=== PATIENT | female | born 1965 | race African-American/Black ===

== ENCOUNTER 2017-01-20 13:23 | Day surgery (SDC) | payer MEDICARE, MEDICAID ==
[~2017-01-20 13:23] MED LIST: AL-MAG HYDROX-S30 ML PO; ALBUTEROL17 GM; AMBIEN5 MG PO; CEPHALEXIN; COUMADIN4 MG PO; DULCOLAX10 MG/SUPP RC; DULCOLAX5 MG PO; DULERA 100 MCG/13 GM IH; FLEXERIL10 MG PO; MILK OF MAGNES311 MG PO; MOTRIN IB200 MG; NO MEDICATIONS; NORCO 5/325 TAB1 TAB PO; NUCYNTA50 MG PO; ROBITUSSIN15 MG/5 M1 PO; SENOKOT-S TABLE1 TAB PO; TUMS500 M1 PO; TYLENOL325 MG PO; ULTRAM50 MG PO
[2017-01-20] MEDS ORDERED: CYCLOBENZAPRINE10 M1 PO (13:48)
[2017-01-20] MEDS ORDERED: OPANA PO (13:48)
== END 2017-01-20 15:15 ==
LOC: ENDOS 13:23 → SHSB 13:25 → ENDOS 14:15
PROC: 0DBK8ZX Excision of Ascending Colon, Via Natural or Artificial Opening Endoscopic, Diagnostic (ICD-10-PCS; principal; 2017-01-20)
PROC: 0DBN8ZX Excision of Sigmoid Colon, Via Natural or Artificial Opening Endoscopic, Diagnostic (ICD-10-PCS; principal; 2017-01-20)
DX: Z12.11 Encounter for screening for malignant neoplasm of colon (principal); D12.3 Benign neoplasm of transverse colon; K63.5 Polyp of colon; K64.1 Second degree hemorrhoids; K59.00 Constipation, unspecified; M19.90 Unspecified osteoarthritis, unspecified site; Z98.890 Other specified postprocedural states; Z90.710 Acquired absence of both cervix and uterus; Z79.899 Other long term (current) drug therapy; Z88.8 Allergy status to other drugs, medicaments and biological substances; Z88.6 Allergy status to analgesic agent